=== PATIENT | female | born 1935 | race Caucasian/White ===

== ENCOUNTER 2017-11-06 12:44 | Observation (INO) | payer OTHER ==
[2017-11-06] MEDS: ONDANSETRON 4 MG INJ IV ×2 (13:22→16:34)
[2017-11-06] MEDS: morphine 2 MG INJ IV (13:23)
[2017-11-06 13:44] LABS: ADD MAN DIFF? NO
[2017-11-06 13:47] LABS: WHITE BLOOD COUNT 9.5 10^3/ul (4.8-10.8)
[2017-11-06 13:47] LABS: BASOPHILS % 0.3 % (0.0-2.0); EOSINOPHILS # 0.1 10^3/ul (0.0-0.5); EOSINOPHILS % 1.3 % (0.0-7.0); HEMATOCRIT 36.7 % (37.0-47.0); HEMOGLOBIN 12.4 g/dl (12.0-16.0); LYMPHOCYTES # 1.2 10^3/ul (0.8-2.9); LYMPHOCYTES % 12.1 % (15.0-51.0); MEAN CORPUSCULAR HEMOGLOBIN 29.3 pg (29.0-33.0); MEAN CORPUSCULAR HGB CONC 33.8 g/dl (32.0-37.0); MEAN CORPUSCULAR VOLUME 86.8 fl (82.0-101.0); MEAN PLATELET VOLUME 9.8 fl (7.4-10.4); MONOCYTE # 0.7 10^3/ul (0.3-0.9); MONOCYTES % 6.9 % (0.0-11.0); NEUTROPHIL # 7.5 10^3/ul (1.6-7.5); NEUTROPHILS % 78.9 % (39.0-77.0); PLATELET COUNT 324 10^3/UL (140-415); RED BLOOD COUNT 4.23 10^6/ul (4.20-5.40); RED CELL DISTRIBUTION WIDTH 12.6 % (11.5-14.5)
[2017-11-06 14:04] LABS: INR 1.01; PROTIME 13.4 Sec (11.9-14.9)
[2017-11-06 14:05] LABS: PARTIAL THROMBOPLASTIN TIME 27.4 Sec (25.0-35.0)
[2017-11-06 14:06] LABS: ALANINE AMINOTRANSFERASE 35 IU/L (13-69); ALBUMIN 4.1 g/dl (3.3-4.9); ALBUMIN/GLOBULIN RATIO 1.24; ALKALINE PHOSPHATASE 75 IU/L (42-121); ANION GAP 13 (8-16); ASPARTATE AMINO TRANSFERASE 33 IU/L (15-46); BILIRUBIN,INDIRECT 0.3 mg/dl (0-1.1); BILIRUBIN,TOTAL 0.3 mg/dl (0.2-1.3); BLOOD UREA NITROGEN 19 mg/dl (7-20); CALCIUM 9.9 mg/dl (8.4-10.2); CARBON DIOXIDE 24 mmol/L (21-31); CHLORIDE 99 mmol/L (97-110); CREATININE 0.49 mg/dl (0.44-1.00); GLUCOSE 110 mg/dl (70-220); POTASSIUM 4.2 mmol/L (3.5-5.1); SODIUM 132 mmol/L (135-144); TOTAL PROTEIN 7.4 g/dl (6.1-8.1)
[2017-11-06] MEDS: HYDROmorphONE 1 MG/ML SYG IV (16:34)
[2017-11-06] MEDS ORDERED: ACETAMINOPHEN 650 MG SUPP PR (18:30)
[2017-11-06] MEDS ORDERED: ONDANSETRON 4 MG INJ IV (18:30)
[2017-11-06] MEDS ORDERED: ONDANSETRON 4 MG TAB PO (18:30)
[2017-11-06] MEDS ORDERED: ACETAMINOPHEN 325 MG TAB PO (18:30)
[2017-11-06] MEDS ORDERED: ERGOCALCIFEROL 50,000 UNIT CAP PO (18:30)
[2017-11-06] MEDS ORDERED: NACL 0.9% 3 ML SYG IV (18:30)
[2017-11-06] MEDS ORDERED: ERGOCALCIFEROL 50,000 UNIT CAP XX (19:30)
[2017-11-07] MEDS: HYDROCODONE/APAP (5/325) TAB PO ×3 (02:17→18:49)
[2017-11-07 06:29] LABS: ADD MAN DIFF? NO
[2017-11-07 06:32] LABS: BASOPHILS % 0.2 % (0.0-2.0); EOSINOPHILS % 0.4 % (0.0-7.0); HEMATOCRIT 27.6 % (37.0-47.0); HEMOGLOBIN 9.3 g/dl (12.0-16.0); LYMPHOCYTES # 1.1 10^3/ul (0.8-2.9); LYMPHOCYTES % 20.7 % (15.0-51.0); MEAN CORPUSCULAR HEMOGLOBIN 29.5 pg (29.0-33.0); MEAN CORPUSCULAR HGB CONC 33.7 g/dl (32.0-37.0); MEAN CORPUSCULAR VOLUME 87.6 fl (82.0-101.0); MEAN PLATELET VOLUME 10.1 fl (7.4-10.4); MONOCYTE # 0.7 10^3/ul (0.3-0.9); MONOCYTES % 13.5 % (0.0-11.0); NEUTROPHIL # 3.4 10^3/ul (1.6-7.5); NEUTROPHILS % 64.8 % (39.0-77.0); PLATELET COUNT 251 10^3/UL (140-415); RED BLOOD COUNT 3.15 10^6/ul (4.20-5.40); RED CELL DISTRIBUTION WIDTH 12.8 % (11.5-14.5)
[2017-11-07 06:32] LABS: WHITE BLOOD COUNT 5.3 10^3/ul (4.8-10.8)
[2017-11-07 07:01] LABS: ANION GAP 12 (8-16); BLOOD UREA NITROGEN 21 mg/dl (7-20); CALCIUM 9.1 mg/dl (8.4-10.2); CARBON DIOXIDE 23 mmol/L (21-31); CHLORIDE 101 mmol/L (97-110); CREATININE 0.52 mg/dl (0.44-1.00); GLUCOSE 118 mg/dl (70-220); POTASSIUM 4.6 mmol/L (3.5-5.1); SODIUM 131 mmol/L (135-144)
[2017-11-07] MEDS: FENOFIBRATE 145 MG TAB PO (08:31)
[2017-11-07] MEDS: CITALOPRAM 20 MG TAB PO (08:32)
[2017-11-07] MEDS: LOSARTAN 50 MG TAB PO (08:33)
[2017-11-07] MEDS: AMLODIPINE 10 MG TAB PO (08:33)
[2017-11-07] MEDS: METOPROLOL (XL) 50 MG TAB PO (08:33)
[2017-11-07] MEDS: CYANOCOBALAMIN 500 MCG TAB PO (08:35)
[2017-11-07] MEDS: ASPIRIN 81 MG TAB PO (08:36)
[2017-11-07] MEDS: ENOXAPARIN 40 MG/0.4 ML SYG SC (09:44)
[2017-11-09] MEDS ORDERED: ALENDRONATE 70 MG TAB PO (06:30)
[2017-11-09] MEDS ORDERED: RISEDRONATE 35 MG TAB PO (06:30)
[2017-11-09] MEDS ORDERED: ERGOCALCIFEROL 50,000 UNIT CAP PO (09:00)
== END 2017-11-07 19:56 | disposition other institution (70) ==
LOC: PP2 21:05 → E/R 12:44 → PP2 18:10
DX: S82.102A Unspecified fracture of upper end of left tibia, initial encounter for closed fracture (principal); R51 Headache; W01.0XXA Fall on same level from slipping, tripping and stumbling without subsequent striking against object, initial encounter; Y92.512 Supermarket, store or market as the place of occurrence of the external cause; I10 Essential (primary) hypertension
CPT/HCPCS: 70450; 73562; 73590; 80048; 80053; 85025; 85610; 85730; 96374; 96375; 96376; 99285-25; G0378